=== PATIENT | male | born 1950 | race Caucasian/White ===

== ENCOUNTER 2018-04-03 11:28 | Inpatient (IN) ==
[2018-04-03 12:10] LABS: Baso % (Auto) 0.5 % (0.0-2.0); Eos # (Auto) 0.1 th/mm3 (0.0-0.4); Eos % (Auto) 2.3 % (0.0-4.0); Hematocrit 41.7 % (39.0-51.0); Hemoglobin 14.4 gm/dL (13.0-17.0); Lymph # (Auto) 1.2 th/mm3 (1.0-4.8); Lymph % (Auto) 20.1 % (9.0-44.0); Mean Corpuscular HGB Conc 34.5 % (32.0-36.0); Mean Corpuscular Hemoglobin 32.1 pg (27.0-34.0); Mean Platelet Volume 8.5 fL (7.0-11.0); Mono # (Auto) 0.5 th/mm3 (0.0-0.9); Mono % (Auto) 8.4 % (0.0-8.0); Neut # (Auto) 4.1 th/mm3 (1.8-7.7); Neut % (Auto) 68.7 % (16.0-70.0); Platelet Count 196 th/mm3 (150-450); Red Blood Count 4.48 mil/mm3 (4.50-5.90); Red Cell Distribution Width 12.7 % (11.6-17.2)
--- NOTE | 2018-04-03 12:18 | ED ---
HPI General Chief Complaint: Neuro Symptoms/Deficit Stated Complaint: Poss Stroke Time Seen by Provider: 04/03/18 11:51 Source: patient Mode of arrival: ambulatory Limitations: no limitations History of Present Illness Onset (ago): hour(s) Time: 07:00 Timing confirmed by: spouse Location: Reports speech History of same: No Quality: Reports weak Relieving factors: none Exacerbating factors: none Context: Reports sudden onset On Anticoagulants: No Associated symptoms: Reports weakness Treatments Prior to Arrival: Reports none Related Data Allergies Allergy/AdvReac Type Severity Reaction Status Date / Time No Known Allergies Allergy Verified 04/03/18 11:55 Review of Systems ROS: all other systems reviewed are negative [facility] Medical History Medical History HTN (hypertension) (Acute) Hernia (Acute) Social History Social History Smoking Status: Never smoker How Often Do You Have a Drink Containing Alcohol: 2 to 4 times a month Recent Travel in [place] within the Last 8 Weeks: No Recent Out of Country Travel within the Last 8 Weeks: No Exam Const General: cooperative, healthy appearing and comfortable Orientation: alert, awake and oriented x3 HENMT Head: normal to inspection, normocephalic and atraumatic Eyes Alignment and Position: alignment normal Conjunctivae: conjunctivae normal Sclera: sclerae normal EOM: EOM intact bilaterally Neck Neck: normal visual inspection Chest Chest: normal inspection of the chest Resp Effort & Inspection: normal respiratory effort and able to speak in complete sentences Cardio Rate: regular rate Rhythm: regular rhythm Back/Spine/Pelvis Cervical Spine: cervical ROM normal Thoracic/Lumbar Spine: thoraco-lumbar ROM normal Skin General: no rashes or lesions noted, turgor normal and dry skin Neuro General: alert, awake, oriented x3, moves all extremities and CN's II-XI intact bilaterally Cranial Nerves: facial strength normal and tongue midline Cognition: normal cognition Speech: abnormal speech (Very mild dysarthria) Motor: muscle tone normal throughout and strength abnormal (Strength on the right side is very slightly diminished compared to the left) Extrem General: normal to inspection and full ROM Psych Appearance: grossly normal Mental Status: mental status grossly normal Mood: congruent mood Affect: normal affect Attitude: cooperative Course Consultations Consultation #1: Dr. Dominguez has seen the patient. He recommends aspirin but no TPA. Time: 12:00 Consultation #2: Dr. Schwarz will admit Time: 13:14 Initial Documented Vital Signs Temperature 98.2 F 04/03/18 11:35 Pulse Rate 58 L 04/03/18 11:35 Respiratory Rate 17 04/03/18 11:35 Blood Pressure 175/82 H 04/03/18 11:35 Pulse Oximetry 98 04/03/18 11:35 Last Documented Vital Signs Temperature 98.2 F 04/03/18 11:35 Pulse Rate 50 L 04/03/18 13:05 Respiratory Rate 16 04/03/18 13:05 Blood Pressure 148/89 H 04/03/18 13:05 Pulse Oximetry 100 04/03/18 13:05 Critical Care Time Critical Care Time: Yes Total Critical Care Time: 30 Attestation: Time to perform other separately billable procedures was not included in the critical care time. My time did not include minutes spent treating any other patients simultaneously or on activities that did not directly contribute to the patient's treatment. The services I provided to this patient were to treat and/or prevent clinically significant deterioration due to stroke I provided critical care services requiring my management, as noted below: Chart data review, documentation time, medication orders and management, vital sign assessments/reviewing monitor data, ordering and reviewing lab tests, ordering and interpreting/reviewing x-rays and diagnostic studies, care of the patient and discussion of the patient with the admitting physicians NIH Stroke Scale NIHSS Time Completed NIHSS Time Completed: 11:55 NIH Stroke Scale Level of Consciousness: 0-Alert Orientation Questions: 0-Answers both correct Responds to Commands: 0-Both tasks correct Gaze Eye Movement: 0-Horizontal movement WNL Visual [place]: 0-No visual field defect Facial Movement: 0-Normal Motor Functions Arm LEFT: 0-No drift Motor Functions Arm RIGHT: 0-No drift Motor Functions Leg LEFT: 0-No drift Motor Functions Leg RIGHT: 0-No drift Limb Ataxia: 0-No ataxia Sensory Loss: 0-No sensory loss Best Language: 0-Normal Articulation: 1-Mild dysarthia Extinction or Inattention Sensory: 0-Absent Total: 1 Quality Measure Queries Stroke Last date observed well: 04/02/18 Last time observed well: 23:00 Medical Decision Making MDM Narrative Medical decision making narrative: This patient presents with dysarthria which started at 7 AM. He reports some associated very mild right-sided weakness. Stroke workup is in process. He has been made a stroke alert. The patient was seen by Dr. Dominguez who recommended aspirin. Medical Screen Exam Complete: Yes Emergency Medical Condition: Yes Differential Diagnosis Differential Diagnosis: Differential diagnosis includes but is not limited to TIA, CVA, brain tumor, migraine, anxiety Lab Data Lab results reviewed: Yes I reviewed the patient's lab results. Result diagrams: 04/03/18 12:00 04/03/18 12:00 Lab Results 04/03/18 04/03/18 04/03/18 Range/Units 11:59 12:00 12:00 WBC 6.0 (4.0-11.0) th/mm3 RBC 4.48 L (4.50-5.90) mil/mm3 Hgb 14.4 (13.0-17.0) gm/dL POC Hgb (Calc) (13.0-17.0) g/dL Hct 41.7 (39.0-51.0) % POC Hct (39-51.0) % MCV 93.0 (80.0-100.0) fL MCH 32.1 (27.0-34.0) pg MCHC 34.5 (32.0-36.0) % RDW 12.7 (11.6-17.2) % Plt Count 196 (150-450) th/mm3 MPV 8.5 (7.0-11.0) fL Neut % (Auto) 68.7 (16.0-70.0) % Lymph % (Auto) 20.1 (9.0-44.0) % [place] % (Auto) 8.4 H (0.0-8.0) % Eos % (Auto) 2.3 (0.0-4.0) % Baso % (Auto) 0.5 (0.0-2.0) % Neut # (Auto) 4.1 (1.8-7.7) th/mm3 Lymph # (Auto) 1.2 (1.0-4.8) th/mm3 [place] # (Auto) 0.5 (0.0-0.9) th/mm3 Eos # (Auto) 0.1 (0.0-0.4) th/mm3 Baso # (Auto) 0.0 (0.0-0.2) th/mm3 WBC Differential . Differential Comment Auto diff final PT 10.5 (9.8-11.6) sec INR 1.0 Ratio APTT 26.8 (23.4-31.7) sec POC Sodium (137-144) mmol/L Sodium (136-145) meq/L POC Potassium (3.6-5.0) mmol/L Potassium (3.5-5.1) meq/L POC Chloride (102-111) mmol/L Chloride (98-107) meq/L Carbon Dioxide (21.0-32.0) meq/L Anion Gap (5-15) meq/L POC BUN (5-21) mg/dL BUN (7-18) mg/dL Creatinine (0.60-1.30) mg/dL POC Creatinine (0.6-1.3) mg/dL Estimated GFR (>89) mL/min POC Glucose 101 (68-110) mg/dl Random Glucose (74-106) mg/dL Calcium (8.5-10.1) mg/dL Total Creatine Kinase (39-308) U/L CK-MB (CK-2) (0.5-3.6) ng/mL Troponin I (0.02-0.05) ng/mL 04/03/18 Range/Units 12:00 WBC (4.0-11.0) th/mm3 RBC (4.50-5.90) mil/mm3 Hgb (13.0-17.0) gm/dL POC Hgb (Calc) 13.9 (13.0-17.0) g/dL Hct (39.0-51.0) % POC Hct 41.0 (39-51.0) % MCV (80.0-100.0) fL MCH (27.0-34.0) pg MCHC (32.0-36.0) % RDW (11.6-17.2) % Plt Count (150-450) th/mm3 MPV (7.0-11.0) fL Neut % (Auto) (16.0-70.0) % Lymph % (Auto) (9.0-44.0) % [place] % (Auto) (0.0-8.0) % Eos % (Auto) (0.0-4.0) % Baso % (Auto) (0.0-2.0) % Neut # (Auto) (1.8-7.7) th/mm3 Lymph # (Auto) (1.0-4.8) th/mm3 [place] # (Auto) (0.0-0.9) th/mm3 Eos # (Auto) (0.0-0.4) th/mm3 Baso # (Auto) (0.0-0.2) th/mm3 WBC Differential Differential Comment PT (9.8-11.6) sec INR Ratio APTT (23.4-31.7) sec POC Sodium 141 (137-144) mmol/L Sodium 140 (136-145) meq/L POC Potassium 4.0 (3.6-5.0) mmol/L Potassium 4.0 (3.5-5.1) meq/L POC Chloride 103 (102-111) mmol/L Chloride 106 (98-107) meq/L Carbon Dioxide 26.8 (21.0-32.0) meq/L Anion Gap 7 (5-15) meq/L POC BUN 23 H (5-21) mg/dL BUN 24 H (7-18) mg/dL Creatinine 0.96 (0.60-1.30) mg/dL POC Creatinine 1.0 (0.6-1.3) mg/dL Estimated GFR 78 L (>89) mL/min POC Glucose 110 (68-110) mg/dl Random Glucose 104 (74-106) mg/dL Calcium 9.2 (8.5-10.1) mg/dL Total Creatine Kinase 141 (39-308) U/L CK-MB (CK-2) 1.0 (0.5-3.6) ng/mL Troponin I Less than 0.02 L (0.02-0.05) ng/mL Imaging Data Radiologist's impression: Head CT 04/03/18 11:55 CONCLUSION: 1. Negative noncontrast CT. Report was called by Dr. Bey to Dr. Rodarte at 1219 hours.. Head CTA 04/03/18 11:55 CONCLUSION: 1. Negative exam. Report was called by Dr. Bey to Dr. Dominguez at 1227 hours.. Neck CTA 04/03/18 11:55 CONCLUSION: 1. Minimal plaque in the left carotid bulb with no significant narrowing. Report was called by Dr Bey to Dr Dominguez at 1242 hours.. ECG Data EKG Prior to Arrival: No Attestation: I personally reviewed and interpreted this ECG as follows: (EKG shows a sinus rhythm with a rate of 54. No STT wave changes.) Discharge Plan Discharge Disposition Patient Disposition: ED Admit(ED Internal Use Only) Discharge Order Discharge Orders: ED Use Only Admit Order (Routine); Ordered 04/03/18 Ordered By: Cecily Rodarte Discharge Details Diagnosis: Dysarthria Physicians Team ED Provider: Cecily Rodarte Primary Care Provider: UNKNOWN, Status ED Status: With Doctor
--- NOTE | 2018-04-03 12:22 | CT ---
EXAM DATE: 04/03/2018 12:13 PM EST AGE/SEX: 68 years / Male INDICATIONS: STROKE ALERT. Garbled speech. Right side facial droop. CLINICAL DATA: This is the patient's initial encounter. Patient reports that signs and symptoms have been present for 1 day and indicates a pain score of Nonresponsive. MEDICAL/SURGICAL HISTORY: Non-responsive. Non-responsive. RADIATION DOSE: 38.26 CTDI (mGy) COMPARISON: No prior exams available for comparison. TECHNIQUE: CT of the head without contrast. Using automated exposure control and adjustment of the mA and/or kV according to patient size, radiation dose was kept as low as reasonably achievable to ob tain optimal diagnostic quality images. DICOM format image data is available electronically for revi ew and comparison. FINDINGS: Cerebrum: The ventricles are normal for age. No evidence of midline shift, mass lesion, hemorrhage or acute infarction. No extraaxial fluid collections are seen. Posterior Fossa: The cerebellum and brainstem are intact. The 4th ventricle is midline. The cerebe llopontine angle is unremarkable. Extracranial: The visualized portion of the orbits is intact. Skull: The calvaria is intact. No evidence of skull fracture. CONCLUSION: 1. Negative noncontrast CT. Report was called by Dr. Bey to Dr. Rodarte at 1219 hours.. Electronically signed by: Rodrigo Bey MD Board Certified Radiologist 04/03/2018 12:21 PM EST
[2018-04-03 12:25] LABS: Activated Partial Thrombo Time 26.8 sec (23.4-31.7); Prothrombin Time 10.5 sec (9.8-11.6)
[2018-04-03 12:30] LABS: Anion Gap 7 meq/L (5-15); Blood Urea Nitrogen 24 mg/dL (7-18); Calcium 9.2 mg/dL (8.5-10.1); Carbon Dioxide 26.8 meq/L (21.0-32.0); Chloride 106 meq/L (98-107); Glomerular Filtration Rate 78 mL/min (>89); Glucose,Random 104 mg/dL (74-106); Sodium 140 meq/L (136-145)
--- NOTE | 2018-04-03 12:31 | CT ---
EXAM DATE: 04/03/2018 12:22 PM EST AGE/SEX: 68 years / Male INDICATIONS: STROKE ALERT. Right side facial droop. Garbled speech. CLINICAL DATA: This is the patient's initial encounter. Patient reports that signs and symptoms have been present for 1 day and indicates a pain score of Nonresponsive. MEDICAL/SURGICAL HISTORY: Non-responsive. Non-responsive. RADIATION DOSE: 28.58 CTDI (mGy) COMPARISON: [facility] – [place], [place] STROKE ALERT HEAD WO CON, 04/03/2018. . TECHNIQUE: Volumetric scanning was performed using a multi-row detector CT scanner during bolus infu chicho of 78 ml Visipaque 320 (iodixanol) nonionic water-soluble contrast as a single exam dose. The data was post processed with a variety of visualization algorithms including full volume maximum int ensity projection, multi-planar sliding thin slab reformation, curved planar reformation, and surface rendering techniques. Using automated exposure control and adjustment of the mA and/or kV according to patient size, radiation dose was kept as low as reasonably achievable to obtain optimal diagnosti c quality images. DICOM format image data is available electronically for review and comparison. FINDINGS: There is excellent visualization of the major intracranial arteries out to the second-order branch ve ssels. There is no evidence for aneurysm, vessel truncation or stenosis, and no evidence for vascula r malformation. CONCLUSION: 1. Negative exam. Report was called by Dr. Bey to Dr. Dominguez at 1227 hours.. Electronically signed by: Rodrigo Bey MD Board Certified Radiologist 04/03/2018 12:30 PM EST
[2018-04-03 12:34] LABS: Creatine Kinase 141 U/L (39-308)
--- NOTE | 2018-04-03 12:45 | CT ---
EXAM DATE: 04/03/2018 12:34 PM EST AGE/SEX: 68 years / Male INDICATIONS: STROKE ALERT. Right side facial droop. Garbled speech. CLINICAL DATA: This is the patient's initial encounter. Patient reports that signs and symptoms have been present for 1 day and indicates a pain score of Nonresponsive. MEDICAL/SURGICAL HISTORY: Non-responsive. Non-responsive. RADIATION DOSE: 28.58 CTDI (mGy) COMPARISON: No prior exams available for comparison. TECHNIQUE: Volumetric scanning was performed using a multirow detector CT scanner during bolus infus ion of 78 ml Visipaque 320 (iodixanol) nonionic water-soluble contrast as a single exam dose. The data was postprocessed with a variety of visualization algorithms including full-volume maximum inten sity projection, multiplanar sliding thin-slab reformation, curved-planar reformation, and surface-re ndering techniques. Using automated exposure control and adjustment of the mA and/or kV according to patient size, radiation dose was kept as low as reasonably achievable to obtain optimal diagnostic q uality images. DICOM format image data is available electronically for review and comparison. Percent stenosis is calculated using the diameter of the stenotic region over the diameter of the nor mal distal internal carotid artery. FINDINGS: Aortic Arch: There is a three-vessel origin of the great vessels from the aorta. No evidence of ost ial narrowing Right Carotid: The common carotid artery is intact. The carotid bulb has a normal configuration wit hout ulceration or narrowing. The internal carotid artery lumen is smooth without stenosis. The ext ernal carotid artery is intact. Left Carotid: The common carotid artery is intact. The carotid bulb has a normal configuration with minimal plaquing calcification and no significant narrowing. The internal carotid artery lumen is sm ooth without stenosis. The external carotid artery is intact. Vertebrals: The vertebral arteries have a symmetric diameter. No stenotic lesions are seen. CONCLUSION: 1. Minimal plaque in the left carotid bulb with no significant narrowing. Report was called by Dr Bey to Dr Dominguez at 1242 hours.. Electronically signed by: Rodrigo Bey MD Board Certified Radiologist 04/03/2018 12:44 PM EST
[2018-04-03] MEDS: Aspirin 325 MG Tablet PO SCH (13:02)
--- NOTE | 2018-04-03 13:06 | MB ---
cc: Sd Dominguez MD, PhD DATE: 04/03/2018 REASON FOR CONSULTATION: Stroke alert. HISTORY OF PRESENT ILLNESS: This is a pleasant 68-year-old male who this morning around 7 o'clock noted slurring of his speech and a right facial droop. He came to the ER as a stroke alert. He had no weakness of the arms or legs. Since then, his symptoms have improved. He still has minimal dysarthria, but no facial droop. PAST MEDICAL HISTORY: He has a history of hypertension, hernia. MEDICATIONS: He is not on any aspirin or anticoagulation. He takes no aspirin. He takes blood pressure medication. NEUROLOGICAL EXAMINATION: VITAL SIGNS: His blood pressure 156/87, pulse is 57, normal sinus rhythm, respirations are 16, temperature 98 degrees. HIGHER CORTICAL FUNCTION: This is done through an personnel administrator. He is alert, oriented. Follows commands. Speech minimally dysarthric, but not aphasic. Cranial nerves 2-12 are normal. There is no facial droop. Motor exam is 5/5 strength of all major groups in both upper and lower extremities. There is no drift. Fundus grossly within normal limits. Reflexes are symmetric. There is no Babinski. DIAGNOSTIC DATA: CT of the brain is normal. CTA of the brain is normal. CTA of the neck is pending. LABORATORY DATA: White count is 6000 and hemoglobin is 14.4, hematocrit 41.7%, platelet count is 196,000. Sodium is 141, potassium is 4, chloride 103, CO2 of 26.8, BUN is 23, creatinine is 0.96, GFR 78, glucose 110. NIH stroke scale is 1. IMPRESSION: Left hemisphere stroke versus transient ischemic attack. Symptoms have almost completely resolved, therefore, would not recommend TPA. He is not a candidate for intervention as there is no evidence of LVO. RECOMMENDATIONS: Start aspirin 325 mg daily. We will follow up on the carotid ultrasound. Check echocardiogram, lipid panel. Monitor cardiac telemetry, rule out atrial fibrillation. We will also get an MRI of the brain. Sd Dominguez MD, PhD RACHANA/marita , 12:48 PM , 12:58 PM
--- NOTE | 2018-04-03 13:41 | P.HPIM ---
History of Present Illness Primary Care Physician: UNKNOWN Chief Complaint: slurred speech History of Present Illness: patient is a 68 y/o male with history of hypertension who presented to ER with slurred speech. most of the information was obtained from the family. he was at his usual state of health till this morning when he started to have slurred speech. he denies any headache, vision changes,focal weakness. he denies any similar episodes in the past. he was brought to ER as a stroke alert and already evaluated by neurology. Inpatient Certification Inpatient Certification: I certify that the inpatient services were ordered in accordance with Medicare regulations governing the order. This includes certification that hospital inpatient services are reasonable and necessary and in the case of services not specified as inpatient-only under 42 CFR 419.22(n), that they are appropriately provided as inpatient services in accordance to with the 2-midnight benchmark under 43 CFR 412.3(e) Estimated Total Length of Stay (Days): 2 Plans for Post Hospital Care: Home Review of Systems Review of Systems: all other systems reviewed are negative [facility] Medical History Medical History HTN (hypertension) (Acute) Hernia (Acute) Family History Family History Other No pertinent family history Social History Social History Smoking Status: Never smoker How Often Do You Have a Drink Containing Alcohol: 2 to 4 times a month Recent Travel in [facility] within the Last 8 Weeks: No Recent Out of Country Travel within the Last 8 Weeks: No Immunization History Tetanus Immunization: Unsure Medications and Allergies Allergies Allergy/AdvReac Type Severity Reaction Status Date / Time No Known Allergies Allergy Verified 04/03/18 11:55 Active Medications: Active Medications Aspirin (Aspirin) 325 mg PO DAILY [facility] Last Admin: 04/03/18 13:02 Dose: 325 mg Sodium Chloride (Ns Inj) 1,000 mls @ 70 mls/hr IV.CONT .[id number] [facility] Sodium Chloride (Ns Flush) 2 ml IV.FLUSH PRN PRN PRN Reason: FLUSH AFTER USING IV ACCESS Physical Exam Vital signs: Vital Signs 04/03/18 11:35 04/03/18 11:55 04/03/18 12:05 Temperature 98.2 F Pulse Rate 58 L 57 L 54 L Respiratory Rate 17 16 16 Blood Pressure 175/82 H 156/87 H 149/89 H Pulse Oximetry 98 99 96 04/03/18 12:15 04/03/18 12:45 04/03/18 13:05 Temperature Pulse Rate 54 L 54 L 50 L Respiratory Rate 16 19 16 Blood Pressure 139/87 148/89 H 148/89 H Pulse Oximetry 96 98 100 Constitutional no acute distress Routine HEENT Exam Eye: Present PERRL Routine Neck Exam Present supple Routine Respiratory Exam Present CTA bilaterally Routine Cardiovascular Exam Present RRR Routine Abdominal Exam Present soft Routine Extremities Exam Comments: no pedal edema. Routine Neurological Exam Present alert and oriented X3 with dysarthria. Results Labs CBC & Chem 7: 04/03/18 12:00 04/03/18 12:[address] 04/03/18 11:55 CONCLUSION: 1. Negative noncontrast CT. Report was called by Dr. Bey to Dr. Rodarte at 1219 hours.. Head CTA 04/03/18 11:55 CONCLUSION: 1. Negative exam. Report was called by Dr. eBy to Dr. Dominguez at 1227 hours.. Neck CTA 04/03/18 11:55 CONCLUSION: 1. Minimal plaque in the left carotid bulb with no significant narrowing. Report was called by Dr Bey to Dr Dominguez at 1242 hours.. Caprini VTE Risk Assessment Caprini VTE Risk Assessment: Moderate/High Risk (score >= 2) Caprini Risk Assessment Model: Point Value = 1 Point Value = 2 Point Value = 3 Point Value = 5 Age 41-60 Minor surgery BMI > 25 kg/m2 Swollen legs Varicose veins or History of unexplained or recurrent spontaneous Oral contraceptives or hormone replacement Sepsis (< 1 month) Serious lung disease, including pneumonia (< 1 month) Abnormal pulmonary function Acute myocardial infarction Congestive heart failure (< 1 month) History of inflammatory bowel disease Medical patient at bed rest Age 61-74 Arthroscopic surgery Major open surgery (> 45 min) Laparoscopic surgery (> 45 min) Malignancy Confined to bed (> 72 hours) Immobilizing plaster cast Central venous access Age >= 75 History of VTE Family history of VTE Factor V Leiden Prothrombin [id number] Lupus anticoagulant Anticardiolipin antibodies Elevated serum homocysteine Heparin-induced thrombocytopenia Other congenital or acquired thrombophilia Stroke (< 1 month) Elective arthroplasty Hip, pelvis, or leg fracture Acute spinal cord injury (< 1 month) Prophylaxis Regimen: Total Risk Factor Score Risk Level Prophylaxis Regimen 0-1 Low Early ambulation 2 Moderate Order ONE of the following: *Sequential Compression Device (SCD) *Heparin 5000 units SQ BID 3-4 Higher Order ONE of the following medications: *Heparin 5000 units SQ TID *Enoxaparin/Lovenox 40 mg SQ daily (WT < 150 kg, CrCl > 30 mL/min) *Enoxaparin/Lovenox 30 mg SQ daily (WT < 150 kg, CrCl > 10-29 mL/min) *Enoxaparin/Lovenox 30 mg SQ BID (WT < 150 kg, CrCl > 30 mL/min) AND/OR *Sequential Compression Device (SCD) 5 or more Highest Order ONE of the following medications: *Heparin 5000 units SQ TID (Preferred with Epidurals) *Enoxaparin/Lovenox 40 mg SQ daily (WT < 150 kg, CrCl > 30 mL/min) *Enoxaparin/Lovenox 30 mg SQ daily (WT < 150 kg, CrCl > 10-29 mL/min) *Enoxaparin/Lovenox 30 mg SQ BID (WT < 150 kg, CrCl > 30 mL/min) AND *Sequential Compression Device (SCD) Assessment and Plan Plan A/P -CVA vs TIA head CT and CTA negative- will check MRI brain, echo and lipid panel- started on aspirin per neurology. continue to monitor on telemetry. consult PT/ST. -Hypertension will proceed with permissive hypertension for now. continue to monitor. -DVT prophylaxis with subq Lovenox. Discussed Condition With: the ER physician, the patient and the family. Discharge Planning: home- pending work-up and clinical course.
[2018-04-03 14:44] LABS: Chol/HDL Ratio 4.51 Ratio; HDL Cholesterol 49.8 mg/dL (40.0-60.0)
[2018-04-03] MEDS: Sod Chloride 0.9% Inj 1,000 ML IV.CONT SCH (15:07)
[2018-04-03 16:53] LABS: Bilirubin,Urine Negative (Negative); Clarity,Urine Clear (Clear); Glucose,Urine (UA) Negative (Negative); Leukocyte Esterase,Urine Negative (Negative); Nitrite,Urine Negative (Negative); Specific Gravity,Urine 1.032 (1.002-1.035)
[2018-04-03 16:56] LABS: Color,Urine Light-Yellow (Yellw/Straw)
--- NOTE | 2018-04-03 17:50 | MR ---
EXAM DATE: 04/03/2018 5:46 PM EST AGE/SEX: 68 years / Male INDICATIONS: CVA. Slurred speech CLINICAL DATA: This is the patient's initial encounter. Patient reports that signs and symptoms have been present for 1 day and indicates a pain score of 0/10. MEDICAL/SURGICAL HISTORY: Hypertension. . Hernia repair. COMPARISON: [facility] – [place], [place] STROKE ALERT HEAD WO CON, 04/03/2018. [facility] – [place], CTA STROKE ALERT HEAD W CONTRAST W 3D, 04/03/2018. . TECHNIQUE: Multiplanar, multisequence examination of the brain was performed without and with 11 ml G adavist (gadobutrol) contrast as a single exam dose. FINDINGS: Diffusion weighted images demonstrate no evidence for acute infarction. CSF spaces, ventricles and ci sterns are of normal size and configuration. A few scattered tiny foci of increased FLAIR signal are noted in the deep white matter, otherwise normal signal intensity. There are no signs of intracranial hemorrhage, mass or infarct. There is mild volume loss. No abnormal areas of enhancement. CONCLUSION: 1. Mild atrophy and white matter disease. Electronically signed by: Kelvin Michelle MD Board Certified Radiologist 04/03/2018 5:49 PM EST
[2018-04-03] MEDS ORDERED: Gadobutrol PF 15 MMOL/15 ML Vial (for RAD) IV.SIG ONE (17:51)
--- NOTE | 2018-04-03 20:01 | ECG ---
Date Performed: 04/03/2018 Time Performed: 12:38:38 PTAGE: 68 years EKG: SINUS BRADYCARDIA WITH FIRST DEGREE AV BLOCK ABNORMAL ECG NO PREVIOUS TRACING DOCTOR: Laquita Cordero Interpretating Date/Time 04/03/2018 19:59:50
--- NOTE | 2018-04-03 20:13 | ECHRPT ---
Indication: CVA/TIA CONCLUSIONS Normal left ventricular size. Wall thickness is normal. The left ventricular systolic function is normal with an estimated ejection fraction in the range of 60-65% The right atrial size is mildly dilated. Trace mitral valve regurgitation. Trace aortic valve regurgitation. There is trace tricuspid valve regurgitation. The estimated pulmonary arterial pressure is 40 mmHg. BP: / HR: Rhythm: Sinus MEASUREMENTS (Male / Female) Normal Values Technical Quality:Fair 2D ECHO LV Diastolic Diameter PLAX 5.0 cm 4.2 - 5.9 / 3.9 - 5.3 cm LV Systolic Diameter PLAX 3.7 cm IVS Diastolic Thickness 1.1 cm 0.6 - 1.0 / 0.6 - 0.9 cm LVPW Diastolic Thickness 1.1 cm 0.6 - 1.0 / 0.6 - 0.9 cm LV Relative Wall Thickness 0.4 RV Internal Dim ED PLAX 4.6 cm LVOT Diameter 2.0 cm Aortic Root Diameter 3.2 cm LA Systolic Diameter LX 3.8 cm 3.0 - 4.0 / 2.7 - 3.8 cm DOPPLER AV Peak Velocity 155.0 cm/s AV Peak Gradient 9.6 mmHg LVOT Peak Velocity 112.0 cm/s LVOT Peak Gradient 5.0 mmHg AV Area Cont Eq pk 2.3 cm Mitral E Point Velocity 73.1 cm/s Mitral A Point Velocity 64.2 cm/s Mitral E to A Ratio 1.1 LV E' Lateral Velocity 9.8 cm/s Mitral E to LV E' Lateral Ratio 7.5 LV E' Septal Velocity 7.8 cm/s Mitral E to LV E' Septal Ratio 9.4 TR Peak Velocity 270.0 cm/s TR Peak Gradient 29.2 mmHg Right Atrial Pressure 10.0 mmHg Pulmonary Artery Systolic Pressu 39.2 mmHg Right Ventricular Systolic Press 39.2 mmHg PV Peak Velocity 145.0 cm/s PV Peak Gradient 8.4 mmHg FINDINGS LEFT VENTRICLE Normal left ventricular size. Wall thickness is normal. The left ventricular systolic function is normal with an estimated ejection fraction in the range of 60-65%. RIGHT VENTRICLE Normal right ventricular size and systolic function. LEFT ATRIUM The left atrial size is normal. RIGHT ATRIUM The right atrial size is mildly dilated. ATRIAL SEPTUM Normal atrial septal thickness without atrial level shunting by limited color doppler interrogation. AORTA The aortic root and proximal ascending aorta are normal in size on limited imaging. MITRAL VALVE Trace mitral valve regurgitation. AORTIC VALVE Trace aortic valve regurgitation. TRICUSPID VALVE There is trace tricuspid valve regurgitation. The estimated pulmonary arterial pressure is 40mmHg. PULMONARY VALVE No pulmonary valve regurgitation or stenosis. VESSELS The inferior vena cava was not well visualized. PERICARDIUM No pericardial effusion. Anjali Xiong MD, FACC (Electronically Signed) Final Date:03 April 2018 20:13
[2018-04-04] MEDS: Sod Chloride 0.9% Inj 1,000 ML IV.CONT SCH (04:26)
--- NOTE | 2018-04-04 05:53 | P.PNIM ---
Subjective Interval history: f/u slurred speech. Improved slurred speech. Patient seen with family. Case discussed with neurology Physical Exam Vital signs: Vital Signs 04/03/18 11:35 04/03/18 11:55 04/03/18 12:05 Temperature 98.2 F Pulse Rate 58 L 57 L 54 L Respiratory Rate 17 16 16 Blood Pressure 175/82 H 156/87 H 149/89 H Pulse Oximetry 98 99 96 04/03/18 12:15 04/03/18 12:45 04/03/18 13:05 Temperature Pulse Rate 54 L 54 L 50 L Respiratory Rate 16 19 16 Blood Pressure 139/87 148/89 H 148/89 H Pulse Oximetry 96 98 100 04/03/18 13:44 04/03/18 15:16 04/03/18 15:35 Temperature Pulse Rate 60 50 L Respiratory Rate 16 17 Blood Pressure 150/88 H 153/95 H Pulse Oximetry 95 95 04/03/18 16:47 04/03/18 20:00 04/03/18 20:15 Temperature 97.7 F Pulse Rate 59 L 55 L Respiratory Rate 17 18 Blood Pressure 162/80 H 168/108 H Pulse Oximetry 97 97 95 04/03/18 23:30 04/04/18 04:10 Temperature 97.6 F 97.6 F Pulse Rate 58 L 52 L Respiratory Rate 18 18 Blood Pressure 134/66 146/89 H Pulse Oximetry 98 97 Intake & Output 04/03/18 04/03/18 04/04/18 06:59 18:59 06:59 Intake Total 1000 / 1000 Balance 1000 / 1000 Weight 97 kg Intake: IV 1000 / 1000 NS Inj 1,000 ML @ 70 mls/hr IV. 1000 / 1000 CONT .[id number] [facility] Rx#:[id number] Other: # Voids 3 Date of Last Bowel Movement 04/02/18 Narrative: GENERAL: WD WN in [place] SKIN: Warm and dry. CARDIOVASCULAR: Regular rate and rhythm. RESPIRATORY: No accessory muscle use. Clear to auscultation. Breath sounds equal bilaterally. GASTROINTESTINAL: Abdomen soft, non-tender, nondistended. MUSCULOSKELETAL: Extremities without clubbing, cyanosis, or edema. No obvious deformities. NEUROLOGICAL: Awake and alert. No obvious cranial nerve deficits. Motor grossly within normal limits. Five out of 5 muscle strength in the arms and legs. PSYCHIATRIC: Appropriate mood and affect; insight and judgment normal. Results Labs CBC & Chem 7: 04/03/18 12:00 04/04/18 06:38 Imaging Imaging: ITS Impressions Head MRI 04/03/18 00:00 CONCLUSION: 1. Mild atrophy and white matter disease. Head CT 04/03/18 11:55 CONCLUSION: 1. Negative noncontrast CT. Report was called by Dr. Bey to Dr. Rodarte at 1219 hours.. Head CTA 04/03/18 11:55 CONCLUSION: 1. Negative exam. Report was called by Dr. Bey to Dr. Dominguez at 1227 hours.. Neck CTA 04/03/18 11:55 CONCLUSION: 1. Minimal plaque in the left carotid bulb with no significant narrowing. Report was called by Dr Bey to Dr Dominguez at 1242 hours.. Procedures Procedures: none Assessment and Plan Plan -TIA stroke w/u neg started on aspirin per neurology. Risk factor modification. LDL 135 start Lipitor follow-up A1c continue to monitor on telemetry. consult PT/ST. -Hypertension restart home med. continue to monitor. -DVT prophylaxis with subq Lovenox. He is stable for discharge discussed with neurology will need outpatient cardiology appointment for loop recorder Discharge patient to home. He has improved significantly earlier than anticipated Condition on discharge: Improved Regular Diet as tolerated Ad Ana activity no driving Rx written: Aspirin and Lipitor Follow-up with primary care physician, neurology and cardiology Progress Note: Quality VTE Deep Vein Thrombosis/Pulmonary Embolism Present on Admission: No
[2018-04-04] MEDS ORDERED: Acetaminophen 325 MG Tablet PO PRN (05:58)
[2018-04-04] MEDS ORDERED: Bisacodyl 10 MG Supp RECTAL PRN (05:58)
[2018-04-04] MEDS ORDERED: Sodium Chloride 0.9% 2 ML Flush PRN IV.FLUSH (06:04)
[2018-04-04] MEDS ORDERED: Senna/Docusate Sodium 8.6/50 MG Tablet PO SCH (09:00)
[2018-04-04] MEDS ORDERED: Enoxaparin Inj 40 MG/0.4 ML Syringe SQ SCH (09:00)
[2018-04-04] MEDS ORDERED: Sodium Chloride 0.9% 2 ML Flush BID IV.FLUSH SCH (09:00)
[2018-04-04 09:09] LABS: Albumin 3.4 g/dL (3.4-5.0); Anion Gap 7 meq/L (5-15); Aspartate Aminotransferase 29 U/L (15-37); Blood Urea Nitrogen 18 mg/dL (7-18); Calcium 8.5 mg/dL (8.5-10.1); Carbon Dioxide 27.9 meq/L (21.0-32.0); Chloride 108 meq/L (98-107); Glomerular Filtration Rate Greater Than 89 mL/min (>89); Glucose,Random 84 mg/dL (74-106); Sodium 143 meq/L (136-145)
[2018-04-04 09:14] LABS: Alanine Aminotransferase 70 U/L (12-78); Alkaline Phosphatase 57 U/L (45-117); Total Protein 6.4 g/dL (6.4-8.2)
[2018-04-04 09:43] VITALS: RESP 20; TEMP 98.1
[2018-04-04] MEDS: Aspirin 325 MG Tablet PO SCH (10:03)
--- NOTE | 2018-04-04 11:51 | P.PNNEU ---
Subjective Subjective Comments: feels back to normal. No new neuro sx. Active Medications: Active Medications Acetaminophen (Tylenol) 650 mg PO Q4H PRN PRN Reason: Temp > 100.4 Al Hydroxide/Mg Hydroxide (Milk Of Magnesia Liq) 30 ml PO Q12H PRN PRN Reason: Mild Constipation Aspirin (Aspirin) 325 mg PO DAILY [facility] Last Admin: 04/04/18 10:03 Dose: 325 mg Bisacodyl (Dulcolax Supp) 10 mg RECTAL DAILY PRN PRN Reason: SEVERE CONSITIPATION Bisoprolol Fumarate (Zebeta) 5 mg PO DAILY [facility] Enoxaparin Sodium (Lovenox Inj) 40 mg SQ DAILY [facility] Last Admin: 04/04/18 10:05 Dose: 40 mg Sodium Chloride (Ns Inj) 1,000 mls @ 70 mls/hr IV.CONT .[id number] [facility] Last Admin: 04/04/18 04:26 Dose: 70 mls/hr Lactulose (Lactulose Liq) 30 ml PO DAILY PRN PRN Reason: SEVERE CONSITIPATION Ondansetron HCl (Zofran Inj) 4 mg IV.PUSH Q6H PRN PRN Reason: NAUSEA OR VOMITING Senna/Docusate Sodium (Pat-Colace) 1 tab PO BID [facility] Last Admin: 04/04/18 10:05 Dose: 1 tab Sennosides (Senokot) 17.2 mg PO Q12H PRN PRN Reason: Moderate Constipation Sodium Chloride (Ns Flush) 2 ml IV.FLUSH BID [facility] Last Admin: 04/04/18 10:06 Dose: Not Given Sodium Chloride (Ns Flush) 2 ml IV.FLUSH PRN PRN PRN Reason: FLUSH AFTER USING IV ACCESS Allergies/Adverse Reactions: Allergies Allergy/AdvReac Type Severity Reaction Status Date / Time No Known Allergies Allergy Verified 04/03/18 11:55 Physical Exam Vital signs: Vital Signs 04/03/18 11:55 04/03/18 12:05 04/03/18 12:15 Temperature Pulse Rate 57 L 54 L 54 L Respiratory Rate 16 16 16 Blood Pressure 156/87 H 149/89 H 139/87 Pulse Oximetry 99 96 96 04/03/18 12:45 04/03/18 13:05 04/03/18 13:44 Temperature Pulse Rate 54 L 50 L 60 Respiratory Rate 19 16 16 Blood Pressure 148/89 H 148/89 H 150/88 H Pulse Oximetry 98 100 04/03/18 15:16 04/03/18 15:35 04/03/18 16:47 Temperature Pulse Rate 50 L 59 L Respiratory Rate 17 17 Blood Pressure 153/95 H 162/80 H Pulse Oximetry 95 95 97 04/03/18 20:00 04/03/18 20:15 04/03/18 23:30 Temperature 97.7 F 97.6 F Pulse Rate 55 L 58 L Respiratory Rate 18 18 Blood Pressure 168/108 H 134/66 Pulse Oximetry 97 95 98 04/04/18 04:10 04/04/18 08:40 Temperature 97.6 F 98.1 F Pulse Rate 52 L 70 Respiratory Rate 18 20 Blood Pressure 146/89 H 166/97 H Pulse Oximetry 97 95 Intake & Output 04/03/18 04/04/18 04/04/18 18:59 06:59 18:59 Intake Total 1000 / 1000 Balance 1000 / 1000 Weight 97 kg Intake: IV 1000 / 1000 NS Inj 1,000 ML @ 70 mls/hr IV. 1000 / 1000 CONT .[id number] [facility] Rx#:[id number] Other: # Voids 3 Date of Last Bowel Movement 04/02/18 - Routine Neurological Exam alert, speech normal in [place] CN intact MOTOR--5/5 BUE and BLE Gait normal Objective Radiology Results: MRI brain normal ECHO--no embolic source Laboratory Results - last 24 hr 04/03/18 04/03/18 04/03/18 11:59 12:00 12:00 WBC 6.0 RBC 4.48 L Hgb 14.4 POC Hgb (Calc) Hct 41.7 POC Hct MCV 93.0 MCH 32.1 MCHC 34.5 RDW 12.7 Plt Count 196 MPV 8.5 Neut % (Auto) 68.7 Lymph % (Auto) 20.1 Ramsey % (Auto) 8.4 H Eos % (Auto) 2.3 Baso % (Auto) 0.5 Neut # (Auto) 4.1 Lymph # (Auto) 1.2 Ramsey # (Auto) 0.5 Eos # (Auto) 0.1 Baso # (Auto) 0.0 WBC Differential . Differential Comment Auto diff final PT 10.5 INR 1.0 APTT 26.8 POC Sodium Sodium POC Potassium Potassium POC Chloride Chloride Carbon Dioxide Anion Gap POC BUN BUN Creatinine POC Creatinine Estimated GFR POC Glucose 101 Random Glucose Calcium Total Bilirubin AST ALT Alkaline Phosphatase Total Creatine Kinase CK-MB (CK-2) Troponin I Total Protein Albumin Triglycerides Cholesterol LDL Cholesterol, Calc HDL Cholesterol Cholesterol/HDL Ratio Urine Color Urine Clarity Urine pH Ur Specific [place] Urine Protein Urine Glucose (UA) Urine Ketones Urine Occult Blood Urine Nitrate Urine Bilirubin Urine Urobilinogen Ur Leukocyte Esterase Urine WBC Micro UA Comment Ur Microscopic Review Urine Culture Comments 04/03/18 04/03/18 04/03/18 12:00 12:00 15:15 WBC RBC Hgb POC Hgb (Calc) 13.9 Hct POC Hct 41.0 MCV MCH MCHC RDW Plt Count MPV Neut % (Auto) Lymph % (Auto) Ramsey % (Auto) Eos % (Auto) Baso % (Auto) Neut # (Auto) Lymph # (Auto) Ramsey # (Auto) Eos # (Auto) Baso # (Auto) WBC Differential Differential Comment PT INR APTT POC Sodium 141 Sodium 140 POC Potassium 4.0 Potassium 4.0 POC Chloride 103 Chloride 106 Carbon Dioxide 26.8 Anion Gap 7 POC BUN 23 H BUN 24 H Creatinine 0.96 POC Creatinine 1.0 Estimated GFR 78 L POC Glucose 110 Random Glucose 104 Calcium 9.2 Total Bilirubin AST ALT Alkaline Phosphatase Total Creatine Kinase 141 CK-MB (CK-2) 1.0 Troponin I Less than 0.02 L Total Protein Albumin Triglycerides 200 H Cholesterol 225 H LDL Cholesterol, Calc 135 H HDL Cholesterol 49.8 Cholesterol/HDL Ratio 4.51 Urine Color Light-yellow Urine Clarity Clear Urine pH 5.0 Ur Specific [place] 1.032 Urine Protein Negative Urine Glucose (UA) Negative Urine Ketones Negative Urine Occult Blood Negative Urine Nitrate Negative Urine Bilirubin Negative Urine Urobilinogen Less than 2 Ur Leukocyte Esterase Negative Urine WBC Less than 1 Micro UA Comment Culture not ind Ur Microscopic Review Not Reportable Urine Culture Comments Culture not ind 04/04/18 06:38 WBC RBC Hgb POC Hgb (Calc) Hct POC Hct MCV MCH MCHC RDW Plt Count MPV Neut % (Auto) Lymph % (Auto) Ramsey % (Auto) Eos % (Auto) Baso % (Auto) Neut # (Auto) Lymph # (Auto) Ramsey # (Auto) Eos # (Auto) Baso # (Auto) WBC Differential Differential Comment PT INR APTT POC Sodium Sodium 143 POC Potassium Potassium 4.0 POC Chloride Chloride 108 H Carbon Dioxide 27.9 Anion Gap 7 POC BUN BUN 18 Creatinine 0.78 POC Creatinine Estimated GFR Greater than 89 POC Glucose Random Glucose 84 Calcium 8.5 Total Bilirubin 0.6 AST 29 ALT 70 Alkaline Phosphatase 57 Total Creatine Kinase CK-MB (CK-2) Troponin I Total Protein 6.4 Albumin 3.4 Triglycerides Cholesterol LDL Cholesterol, Calc HDL Cholesterol Cholesterol/HDL Ratio Urine Color Urine Clarity Urine pH Ur Specific [place] Urine Protein Urine Glucose (UA) Urine Ketones Urine Occult Blood Urine Nitrate Urine Bilirubin Urine Urobilinogen Ur Leukocyte Esterase Urine WBC Micro UA Comment Ur Microscopic Review Urine Culture Comments Review/Management - Review/Management Plan: TIA--resolved Ok to dc home on asa and statin RTO my office 3 weeks
[2018-04-04 12:58] VITALS: BP 171/105; PULSE 55; O2SAT 96
[2018-04-04 16:14] LABS: Hemoglobin A1c 5.9 % (4.3-6.0)
== END 2018-04-04 13:21 | disposition home or self-care (01) | DRG 69 ==
LOC: NEPE 11:28 → NEDA 13:11 → N05 18:02
PROVIDERS: ADMIT Internal Medicine; ATTEND Internal Medicine
CPT/HCPCS: 70450; 70496; 70498; 70553; 80048; 80053; 80061; 81001; 82435; 82550; 82552; 82565; 82947; 82948; 82962; 83036; 84132; 84295; 84484; 84520; 85025; 85610; 85730; 92610; 93005; 93306; 97162; 99291; A9585; G0195; J1650; J7030; Q9967